=== PATIENT | female | born 1960 | race Caucasian/White ===

== ENCOUNTER → 2020-08-20 | Outpatient (CLI) | payer BC, OTHER ==
[~2020-08-20] MED LIST: B12 PO; IBUPROFEN800 MG PO; VIT D3 PO
== END ==
LOC: KOH-I 10:41
DX: Z12.2 Encounter for screening for malignant neoplasm of respiratory organs (principal); F17.210 Nicotine dependence, cigarettes, uncomplicated; R91.8 Other nonspecific abnormal finding of lung field; R59.0 Localized enlarged lymph nodes
CPT/HCPCS: 71271

== ENCOUNTER → 2021-04-19 | Outpatient (CLI) | payer OTHER | LOC: MAMO 04-13 15:30 | DX: Z12.31 Encounter for screening mammogram for malignant neoplasm of breast (principal) | CPT/HCPCS: 77063; 77067 ==

== ENCOUNTER → 2021-08-29 | Outpatient (CLI) | payer OTHER | LOC: KOH-I 08-22 13:00 | DX: F17.210 Nicotine dependence, cigarettes, uncomplicated (principal); R91.8 Other nonspecific abnormal finding of lung field | CPT/HCPCS: 71271 ==

== ENCOUNTER → 2021-09-20 | Outpatient (CLI) | payer OTHER | LOC: EXRD 14:12 | DX: N13.2 Hydronephrosis with renal and ureteral calculous obstruction (principal); I10 Essential (primary) hypertension; R31.9 Hematuria, unspecified | CPT/HCPCS: 74018 ==

== ENCOUNTER → 2021-09-27 | Outpatient (CLI) | payer OTHER | LOC: KOH-I 13:02 | DX: I12.9 Hypertensive chronic kidney disease with stage 1 through stage 4 chronic kidney disease, or unspecified chronic kidney disease (principal); N18.30 Chronic kidney disease, stage 3 unspecified; N28.89 Other specified disorders of kidney and ureter | CPT/HCPCS: 76775 ==

== ENCOUNTER → 2021-10-24 | Outpatient (CLI) | payer OTHER | LOC: CT 10-13 13:00 | DX: R31.9 Hematuria, unspecified (principal); N13.2 Hydronephrosis with renal and ureteral calculous obstruction; R93.429 Abnormal radiologic findings on diagnostic imaging of unspecified kidney; N28.89 Other specified disorders of kidney and ureter | CPT/HCPCS: 36415; 82565; 84520; Q9967 ==

== ENCOUNTER → 2021-11-01 | Outpatient (CLI) | payer OTHER | LOC: CT 09:57 | DX: R31.9 Hematuria, unspecified (principal); R93.429 Abnormal radiologic findings on diagnostic imaging of unspecified kidney; N28.89 Other specified disorders of kidney and ureter; K76.0 Fatty (change of) liver, not elsewhere classified; N13.2 Hydronephrosis with renal and ureteral calculous obstruction | CPT/HCPCS: Q9967 ==

== ENCOUNTER → 2022-04-25 | Day surgery (SDC) | payer BC ==
[~2022-04-25] MED LIST changes: +ALLEGRA ALLERG180 MG PO; +ASPIRIN81 MG PO; +AZO CRANBERRY1 EAC1 PO; +CENTRUM SILVER1 EAC4 PO; +COZAAR50 MG PO; +ELDERBERRY-VIT1 EACH PO; +HYDROCHLOROTHIA25 MG PO; +MUCINEX DM PO; +XYZAL5 MG PO
== END | disposition home or self-care (01) ==
LOC: OR 06:04
DX: Z12.11 Encounter for screening for malignant neoplasm of colon (principal); D12.5 Benign neoplasm of sigmoid colon; F17.210 Nicotine dependence, cigarettes, uncomplicated; I10 Essential (primary) hypertension; E78.5 Hyperlipidemia, unspecified; Z79.82 Long term (current) use of aspirin; Z79.899 Other long term (current) drug therapy
CPT/HCPCS: J2704